=== PATIENT | female | born 1935 | race Caucasian/White ===

== ENCOUNTER → 2021-05-28 | Day surgery (SDC) | payer MEDICARE, OTHER ==
[~2021-05-28] VITALS: Ht 170.2 cm; Wt 78.0 kg
[~2021-05-28] MED LIST: ASPI81TA59 PO; ATOR20TA58 PO; CELE200C PO; DICY10CA3 PO; DOXY100C3 PO; HYDROmorphone 2 MG/ML VIAL IVP PRN; IV RINGERS,LACTATED 1000ML 1,000 ML IV SCH; LIDOCAINE 2% PF 5 ML VIAL. ONE; METO-239 PO; MORPHINE SULFATE 2 MG/ML INJ. IVP PRN; OLME20TA17 PO; PALB125C PO; PROCHLORPERAZINE 10 MG/2 ML VIAL. IVP PRN; PROPOFOL 10 MG/ML (20ML) VIAL. IV ONE; fentaNYL PF VIAL 100 MCG/2 ML VIAL IVP PRN
[2021-05-28 14:09] VITALS: BP 202/88
--- NOTE | 2021-05-28 14:55 | PDOC4 ---
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 G--HH, pre--pyloric erosion. D--normal to second portion. --Empirically dilated with 52F Carranza w/o resistance. Tolerated well. IMP: Shatzki's ring, dilated. HH REC: Resume home meds, diet. Can re-dilate prn. F/u with me prn. RAYMOND NIEVES MD May 28, 2021 14:55
[2021-05-28 15:20] VITALS: BP 142/74
== END | disposition home or self-care (01) ==
LOC: ENDOS 13:39
PROVIDERS: ATTEND Internal Medicine Gastroenterology
DX: R13.10 Dysphagia, unspecified (principal); K44.9 Diaphragmatic hernia without obstruction or gangrene; K31.89 Other diseases of stomach and duodenum; I10 Essential (primary) hypertension; E78.00 Pure hypercholesterolemia, unspecified; J44.9 Chronic obstructive pulmonary disease, unspecified; Z79.82 Long term (current) use of aspirin; Z79.899 Other long term (current) drug therapy; Z87.891 Personal history of nicotine dependence; Z98.890 Other specified postprocedural states; Z88.0 Allergy status to penicillin
CPT/HCPCS: 43235; 43450; J2704